=== PATIENT | male | born 1985 | race Caucasian/White ===

== ENCOUNTER 2019-09-14 23:39 | Inpatient (IN) | payer BC, MEDICAID ==
[~2019-09-14] VITALS: Ht 170.2 cm; Wt 85.1 kg
--- NOTE | 2019-09-14 23:45 | NUR ---
UNABLE TO PERFORM SUICIDE SCREEN AT PRESENT D/T PT LOC
--- NOTE | 2019-09-14 23:53 | NUR ---
SPOKE WITH AYAD AT POISON CONTROL, ISTRUCTED TO MONITOR PT FOR MEDIA SPECIALIST DEPRESSION, GIVEN FLUIDS SUPPORTIVE MEASURES. MONITOR PT UNTIL ASYMPTOMATIC. NOTIFIED EDP DOWNEN OF POISON CONTROL RECOMMENDATIONS
[2019-09-15] VITALS (17 sets, daily range): BP systolic 99–144; BP diastolic 51–100; Ht 170.2 cm; Wt 85.1 kg
--- NOTE | 2019-09-15 | NUR ---
in and out straight cath, sterile field maintained. 15 ml urine sent to lab. pt tolerated well.
[2019-09-15 00:04] LABS: HEMATOCRIT 40.8 % (42.0-54.0); HEMOGLOBIN 13.6 g/dL (13.5-17.5); LYMPHOCYTES 30.3 % (15-50); MCH 27.2 pg (26.0-34.0); MCHC 33.3 g/dL (31.0-37.0); MCV 81.6 fL (80.0-100.0); MEAN PLATELET VOLUME 8.7 fL (7.4-10.4); NEUTROPHILS 57.5 % (40-80); PLATELET COUNT 311 10x3/uL (130-400); RDW 13.5 % (11.5-14.5); WBC 8.3 10x3/uL (4.8-10.8)
[2019-09-15 00:13] LABS: APPEARANCE CLEAR (CLEAR); BILIRUBIN NEGATIVE (NEGATIVE); COLOR YELLOW (YELLOW); GLUCOSE NEGATIVE (NEGATIVE); KETONE NEGATIVE (NEGATIVE); NITRITE NEGATIVE (NEGATIVE); PROTEIN NEGATIVE (NEGATIVE); UROBILINOGEN NORMAL (NORMAL)
[2019-09-15 00:14] LABS: UDS - AMPHET NEGATIVE QUAL (NEGATIVE); UDS - BARB NEGATIVE QUAL (NEGATIVE); UDS - BENZO NEGATIVE QUAL (NEGATIVE); UDS - COCAINE NEGATIVE QUAL (NEGATIVE); UDS - OPIATE NEGATIVE QUAL (NEGATIVE); UDS - PCP NEGATIVE QUAL (NEGATIVE); UDS - THC POSITIVE QUAL (NEGATIVE)
[2019-09-15 00:17] LABS: ANION GAP 16.6 mmol/L (8-16); CALCIUM 8.7 mg/dL (8.5-10.1); CARBON DIOXIDE 24.9 mmol/L (21.0-32.0); CREATININE - SERUM 1.2 mg/dL (0.6-1.3); POTASSIUM - SERUM 4.5 mmol/L (3.5-5.1)
[2019-09-15 00:30] LABS: ALBUMIN 3.7 g/dL (3.4-5.0); BILIRUBIN - TOTAL 0.31 mg/dL (0.2-1.3); MAGNESIUM - SERUM 1.9 mg/dL (1.8-2.4); PROTEIN - SERUM 7.4 g/dL (6.4-8.2)
--- NOTE | 2019-09-15 02:30 | NUR ---
RESTRAINTS D/C'D BY ANOTHER NURSE. PT IS COOPERATIVE. ALERT, ORIENTED TO SELF ONLY. STATES "I TOOK FOUR SOMAS. YOU GAVE THEM TO ME."
--- NOTE | 2019-09-15 02:35 | NUR ---
PT OBSERVED WALKING IN HALLWAY, IV D/C'D BY PT. PT ENTERS RESTROOM AND STATES "I AM USING THE BATHROOM." PT AMBULATED BACK TO ROOM WITH ANOTHER NURSE.
--- NOTE | 2019-09-15 03:05 | NUR ---
REC'D PATIENT FROM ER AT 0305. ASSESSMENT, SUICIDE RISK, AND HISTORY COMPLETED. REQUESTING LARGE AMOUNTS OF FOOD. ON ROOM AIR. NO IVF GOING, STARTED THEM PER ORDRES. C/O CHRONIC BACK PAIN. 1:1 SITTER. PATIENT IS ALERT/ORIENTED X 4.
[2019-09-15] MEDS ORDERED: BUSPIRONE HCL30 MG PO (03:08)
[2019-09-15] MEDS ORDERED: SEROQUEL300 MG PO (03:08)
[2019-09-15] MEDS ORDERED: TRINTELLIX20 MG PO (03:09)
--- NOTE | 2019-09-15 04:03 | NUR ---
DR BARON NOTIFIED AND SITTER AT BEDSIDE, ASSESSMENT IS LOW RISK DUE TO PT ANSEWERS TO QUESTIONS, FAMILY STATES THAT HE HAS HAD SEVERAL SUICIDE ATTEMPTS IN THE RECENT PAST, PT BEHAVIOR AND ACTIONS INDICATE THAT HE IS A HIGH RISK FOR SUICIDE REGARDLESS OF HIS ANSEWERS TO THE ASSESSMENT QUESTIONS. WILL CONTINUE TO MONITOR, SAFETY PLAN STARTED.
[2019-09-15 04:49] LABS: APTT 29.1 SECONDS (22.8-39.4); INR 1.11 (0.85-1.17); PROTIME 13.8 SECONDS (11.6-15.0)
[2019-09-15 04:54] LABS: HEMATOCRIT 36.5 % (42.0-54.0); HEMOGLOBIN 12.2 g/dL (13.5-17.5); LYMPHOCYTES 21.7 % (15-50); MCH 27.5 pg (26.0-34.0); MCHC 33.4 g/dL (31.0-37.0); MCV 82.2 fL (80.0-100.0); MEAN PLATELET VOLUME 8.5 fL (7.4-10.4); NEUTROPHILS 74.1 % (40-80); PLATELET COUNT 257 10x3/uL (130-400); RBC 4.44 10x6/uL (4.20-6.10); RDW 13.5 % (11.5-14.5); WBC 8.4 10x3/uL (4.8-10.8)
--- NOTE | 2019-09-15 05:00 | NUR ---
EYES CLOSED, EASILY WAKES. DENIES ANY NEEDS AT THIS TIME. 1:1 SITTER
[2019-09-15 05:22] LABS: ALBUMIN 3.1 g/dL (3.4-5.0); ALKALINE PHOSPHATASE 70 U/L (46-116); ALT (SGPT) 30 U/L (10-68); BILIRUBIN - TOTAL 0.18 mg/dL (0.2-1.3); CALC OSMOLALITY 297 mosm/kg (275-300); CALCIUM 8.1 mg/dL (8.5-10.1); CHLORIDE - SERUM 115 mmol/L (98-107); CREATININE - SERUM 1.3 mg/dL (0.6-1.3); GLUCOSE 171 mg/dL (74-106); MAGNESIUM - SERUM 1.9 mg/dL (1.8-2.4); PHOSPHOROUS 2.7 mg/dL (2.5-4.9); PROTEIN - SERUM 6.2 g/dL (6.4-8.2); SODIUM 148 mmol/L (136-145); UREA NITROGEN 12 mg/dL (7-18); eGFR NON AFRICAN AMERICAN 68 mL/min (90-120)
[2019-09-15 05:34] LABS: CREATINE KINASE 1033 UL (21-232); POTASSIUM - SERUM 3.5 mmol/L (3.5-5.1)
[2019-09-15 05:35] LABS: CKMB 5.5 U/L (0.0-3.6)
--- NOTE | 2019-09-15 07:00 | NUR ---
PT RESTING IN BED WITH SITTER AT BEDSIDE, SHIFT ASSESSMENT PERFORMED. PT STATES HE HAS PAIN 8/10 IN HIS BACK AND WOULD LIKE SOME PAIN MEDICATION. ADVISED PT THAT HE HAS A LOT OF SOMA IN HIS SYSTEM AND IF HE TAKES PAIN MEDICATION AND SOME TOGETHER HE COULD STOP BREATHING. PT LAUGHED AND STATES, "WELL THAT WON'T HAPPEN TO ME. BUT DO WHAT YOU NEED TO." DENIES ANY FURTHER NEEDS AT THIS TIME, WILL CONT TO FOLLOW POC
--- NOTE | 2019-09-15 09:00 | NUR ---
PT HAD A BM USING BEDSIDE COMMODE. PT CALM AND COOPERATIVE AT THIS TIME, SITTER AT BEDSIDE. VSS AND WNL. WILL CONT TO FOLLOW POC
--- NOTE | 2019-09-15 11:00 | NUR ---
PT MOM, LISBET, BROUGHT A MED LIST, COPY OF INSURANCE CARDS, AND A LIST OF RECENT HOSPITALIZATIONS. MED REC UPDATED AND INSURANCE INFORMATION GIVEN TO [place] WITH CASE MANAGEMENT. WILL SHOW THE LIST OF RECENT HOSPITALIZATIONS.
[2019-09-15] MEDS ORDERED: GEODON80 MG PO (11:23)
[2019-09-15] MEDS ORDERED: LEXAPRO20 MG PO (11:23)
[2019-09-15] MEDS ORDERED: GABAPENTIN100 MG PO ×2 (11:24→11:25)
[2019-09-15] MEDS ORDERED: HYDROXYZINE HCL50 MG PO (11:25)
[2019-09-15] MEDS ORDERED: TRAZODONE HCL150 MG PO (11:26)
[2019-09-15] MEDS ORDERED: REMERON15 MG PO (11:26)
[2019-09-15] MEDS ORDERED: VITAMIN B-121000 MCG PO (11:27)
--- NOTE | 2019-09-15 11:52 | NUR ---
HERE, SHOWED LIST OF HOME MEDICATIONS THAT PT MOM PROVIDIED. GAVE VERBAL ORDER ON WHICH MEDICATIONS TO RESTART.
--- NOTE | 2019-09-15 13:30 | NUR ---
PT HAS ASKED SITTER AND NURSE MULTIPLE TIMES FOR PAIN MEDICATION AND HAS BEEN EDUCATED EACH TIME TO WHY HE CANNOT HAVE ANY PAIN MEDICATIION. ASKED TO DISCUSS THIS MATTER WITH THE PT. PT STILL ASKING WHAT IT WOULD TAKE FOR HIM TO OBTAIN PAIN MEDICATION AFTER TOLD PT THAT HE WILL NOT BE RECIEVING ANY PAIN MEDICATION. MARINA SEX THERAPIST HERE AND IS SPEAKING WITH PT AT THIS TIME. PT ASKED SITTER, "IF A NEEDLE WAS TO BREAK OFF IN SOMEONE'S VEIN WOULD IT GO TO THEIR HEART AND KILL THEM?" SITTER LET PT KNOW THAT THERE IS NO NEEDLE IN HIS ARM (PT WAS STARING AT HIS IV SITE). THEN PT STATED, "NEVERMIND, I WILL JUST TAKE A SYRINGE FULL OF AIR AND SHOOT IT INTO MY VEIN." DENISETER IMMEDIATLY REPORTED THIS TO NURSE. MARINA WITH PRISON AND BOTH MADE AWARE OF COMMENTS. STILL WANTS PT TO RECIEVE NS AT 200ML/HR AND ADVISED NURSE THAT IF HE TRYS TO DO ANYTHING THEN OK TO PLACE WRIST RESTRAINTS. PT DOES NOT HAVE ACCESS TO ANY SYRINGES AND IS LAYING IN BED AT THIS TIME. SITTER IS AT BEDSIDE. WILL CONT TO FOLLOW POC
--- NOTE | 2019-09-15 13:34 | NUR ---
PT CONTINUES TO MAKE SUICIDAL STATEMENTS. HE MENTIONED USING A NEEDLE AND INJECTED AIR INTO HIS VEIN BECAUSE IT IS "LETHAL". SITTER AT BEDSIDE. PT STATED MEDICATIONS ARE NOT WORKING AND WOULD LIKE TO TRY SOMETHING ELSE. PT IS TAKING MEDICATIONS THAT HE HAS BECAUSE "I HAVE NOTHING ELSE AND SOMETHING IS BETTER THAN NOTHING".
--- NOTE | 2019-09-15 14:36 | MORECARE ---
CASE MANAGEMENT DISCHARGE SUMMARY PATIENT: RUBI MADDOX UNIT: [id number] ADM DATE: 09/15/19 AGE: 33 : 87 SEX: M ROOM/BED: D.2306 AUTHOR: EMILIO MARINA PHYSICIAN: REFERRING PHYSICIAN: VALERIA LITTLE MD DATE OF SERVICE: 09/15/19 Discharge Plan Patient Name: RUBI MADDOX Facility: [facility]:[place] : 1985 Planned Disposition: Anticipated Discharge Date: Discharge Date: Expected LOS: Initial Reviewer: [email or web address] Initial Review Date: 09/15/2019 Generated: 09/15/19 3:36 pm External Providers External Provider: [facility] Next Contact Date: Service Request Date: Service Type: Resolution: Reviewer: Comments: Patient Name: RUBI MADDOX Page [phone] at 1436 All edits/amendments must be made on the electronic document DICTATION DATE: 09/15/19 1436 BRIM FLEXER: ALONSO 09/15/19 1436 RPT#: [id number] DC DATE: STATUS: ADM IN [facility] [address] [place] [address] END OF REPORT
--- NOTE | 2019-09-15 15:00 | NUR ---
PT PIV TO RIGHT HAND INFILTRATED. PIV REMOVED WITH CATHETER TIP INTACT. ATTEMPTED INSERTION X1 AND FAILED. PT HAS BECOME AGGITATED AT THIS POINT. WILL DISCUSS WITH MD IF PT CAN STOP IVF.
--- NOTE | 2019-09-15 16:44 | NUR ---
HERE AND STATES PT CAN TRANSFER TO [facility]. PT AWARE AND OK WITH DECISION. WILL CONTACT PT MOM WELL.
--- NOTE | 2019-09-15 16:56 | NUR ---
REPORT CALLED TO MAIRA AT [facility].
[2019-09-15] MEDS ORDERED: DEPAKOTE500 MG PO (17:33)
[2019-09-15] MEDS ORDERED: GEODON40 MG PO (17:34)
[2019-09-15] MEDS ORDERED: KLONOPIN1 MG PO (17:37)
[2019-09-15 18:20] LABS: CREATINE KINASE 1575 UL (21-232)
--- NOTE | 2019-09-15 18:38 | NUR ---
AMBULANCE HERE TO TAKE PT. PT LEFT FACILITY WITH EMS
[2019-09-15 19:02] LABS: CKMB 5.7 U/L (0.0-3.6)
--- NOTE | 2019-09-16 15:57 | CN ---
PATIENT NAME:RUBI MADDOX MEDICAL RECORD: [id number] : 87 LOCATION:RICKIE.2306 ADMIT DATE: 09/15/19 ACCOUNT: [id number] CONSULTING PHYSICIAN: SHAE BARON MD REFERRING PHYSICIAN: VALERIA LITTLE MD DATE OF CONSULTATION: 09/15/2019 PSYCHIATRIC CONSULTATION IDENTIFYING DATA: The patient is 33 years old and he is admitted to the hospital on a voluntary basis. CHIEF COMPLAINT: Overdose. HISTORY OF PRESENT ILLNESS: The patient took an overdose of Soma. He did so with the intent of killing himself. I am not sure how the authorities were called, but when the ambulance crew arrived, they found him combative and confused. He has been admitted to the hospital and stabilized and on interview, he is cooperative. He admits that he has a lot of depressive symptoms. He says he has been diagnosed with bipolar disorder and has been followed by a psychiatrist in [place]. He denies overt psychotic symptoms. ASSESSMENT: 1. Overdose. 2. Bipolar disorder by history. PLAN: At this time, the patient requires inpatient psychiatric care. He needs to be stabilized psychiatrically and then connected with outpatient followup mental health care. TRANSINT:[id number] Voice Confirmation ID: [id number] DOCUMENT ID: [id number] SHAE BARON MD at 1557 CC: [id number] DICTATION DATE: 09/15/19 1656 MOLDER HAND: 09/15/19 1822 DIS IN 09/15/19 [id number] [place] [address]
--- NOTE | 2019-09-16 17:31 | MORECARE ---
CASE MANAGEMENT DISCHARGE SUMMARY PATIENT: RUBI MADDOX UNIT: [id number] ADM DATE: 09/15/19 AGE: 33 : 87 SEX: M ROOM/BED: D.2306 AUTHOR: EMILIO MARINA PHYSICIAN: REFERRING PHYSICIAN: VALERIA LITTLE MD DATE OF SERVICE: 09/16/19 Discharge Plan Patient Name: RUBI MADDOX Facility: [facility]:[place] : 1985 Planned Disposition: Psych facility Anticipated Discharge Date: Discharge Date: 09/15/2019 Expected LOS: Initial Reviewer: [email or web address] Initial Review Date: 09/15/2019 Generated: 09/16/19 6:31 pm Comments DCP- Discharge Planning Updated by [email or web address]: Lary Curtis on 09/16/19 4:[address] LATE ENTRY 09/15/19 CM met with patient and he is willing to go voluntarily to inpatient psych facility. CM called and faxed transfer center for transfer to psych. CM will continue to follow and assist as needed with discharge planning / needs. Last DP export: 09/15/19 1:36 p Patient Name: RUBI MADDOX Page [phone] at 1731 All edits/amendments must be made on the electronic document DICTATION DATE: 09/16/191730 DIALYSIS TECHNICIAN: ALONSO 09/16/191730 RPT#: [id number] DC DATE:09/15/19 STATUS: DIS IN [facility] [address] [place] [address] END OF REPORT
== END 2019-09-15 18:41 | DRG 918 ==
LOC: D.ER 23:39 → D.ICU 09-15 01:23
PROVIDERS: Family Medicine; ADMIT Internal Medicine Nephrology; ATTEND Internal Medicine Nephrology
DX: T42.8X1A Poisoning by antiparkinsonism drugs and other central muscle-tone depressants, accidental (unintentional), initial encounter (principal); F19.10 Other psychoactive substance abuse, uncomplicated; R41.82 Altered mental status, unspecified; F60.89 Other specific personality disorders; F31.9 Bipolar disorder, unspecified

== ENCOUNTER 2019-09-25 15:35 | Emergency (ER) | payer BC, MEDICAID ==
[~2019-09-25] VITALS: Ht 170.2 cm; Wt 79.5 kg
[~2019-09-25 15:35] MED LIST: BUSPIRONE HCL30 MG PO; DEPAKOTE500 MG PO; GABAPENTIN100 MG PO; GEODON40 MG PO; GEODON80 MG PO; HYDROXYZINE HCL50 MG PO; KLONOPIN1 MG PO; LEXAPRO20 MG PO; REMERON15 MG PO; SEROQUEL300 MG PO; TRAZODONE HCL150 MG PO; TRINTELLIX20 MG PO; VITAMIN B-121000 MCG PO
[2019-09-25 15:37] VITALS: Ht 170.2 cm; Wt 79.5 kg
[2019-09-25 16:26] LABS: BASOPHILS 0.7 % (0-2); EOSINOPHILS 2.6 % (0-7); HEMATOCRIT 39.5 % (42.0-54.0); HEMOGLOBIN 12.9 g/dL (13.5-17.5); IMMATURE GRANULOCYTES 0.3 % (0-5); MCH 27.3 pg (26.0-34.0); MCHC 32.7 g/dL (31.0-37.0); MCV 83.5 fL (80.0-100.0); MEAN PLATELET VOLUME 8.7 fL (7.4-10.4); MONOCYTES 9.2 % (2-11); NEUTROPHILS 59.2 % (40-80); PLATELET COUNT 305 10x3/uL (130-400); RBC 4.73 10x6/uL (4.20-6.10); WBC 9.7 10x3/uL (4.8-10.8)
[2019-09-25 16:41] LABS: CALC OSMOLALITY 276 mosm/kg (275-300); CALCIUM 9.1 mg/dL (8.5-10.1); CARBON DIOXIDE 26.6 mmol/L (21.0-32.0); CHLORIDE - SERUM 104 mmol/L (98-107); POTASSIUM - SERUM 4.2 mmol/L (3.5-5.1); SODIUM 139 mmol/L (136-145); UREA NITROGEN 12 mg/dL (7-18); eGFR NON AFRICAN AMERICAN > 90 mL/min (90-120)
[2019-09-25 16:42] LABS: GLUCOSE 86 mg/dL (74-106)
[2019-09-25 16:47] LABS: ALBUMIN 3.7 g/dL (3.4-5.0); ALKALINE PHOSPHATASE 63 U/L (46-116); ALT (SGPT) 37 U/L (10-68); BILIRUBIN - TOTAL 0.21 mg/dL (0.2-1.3); MAGNESIUM - SERUM 1.8 mg/dL (1.8-2.4); PROTEIN - SERUM 6.7 g/dL (6.4-8.2)
[2019-09-25 17:24] LABS: APPEARANCE CLEAR (CLEAR); BILIRUBIN NEGATIVE (NEGATIVE); COLOR YELLOW (YELLOW); GLUCOSE NEGATIVE (NEGATIVE); KETONE NEGATIVE (NEGATIVE); NITRITE NEGATIVE (NEGATIVE); PROTEIN NEGATIVE (NEGATIVE); SPECIFIC GRAVITY 1.015 (1.005-1.020); UROBILINOGEN NORMAL (NORMAL)
[2019-09-25 17:27] LABS: UDS - AMPHET NEGATIVE QUAL (NEGATIVE); UDS - BARB NEGATIVE QUAL (NEGATIVE); UDS - BENZO NEGATIVE QUAL (NEGATIVE); UDS - COCAINE NEGATIVE QUAL (NEGATIVE); UDS - OPIATE NEGATIVE QUAL (NEGATIVE); UDS - PCP NEGATIVE QUAL (NEGATIVE); UDS - THC NEGATIVE QUAL (NEGATIVE)
--- NOTE | 2019-09-25 18:00 | NUR ---
DR. BARON NOTIFIED AND REVIEWED PATIENT'S BEHVIOR AND ASSESSSMENT RESULTS. PATIENT IS LOW RISK PER DR. BARON. RESOURCES REVIEWED WITH PATIENT AND HE VERBALIZED UNDERSTANDING.
[2019-09-25 18:31] VITALS: BP 129/86
== END 2019-09-25 18:47 ==
LOC: D.ER 15:35
PROVIDERS: Family Medicine
DX: F32.9 Major depressive disorder, single episode, unspecified (principal); R45.851 Suicidal ideations